=== PATIENT | female | born 1950 | race Two or more races ===

== ENCOUNTER 2022-09-01 10:39 | Outpatient (REF) | payer MEDICARE, SELFPAY ==
--- NOTE | ~2022-09-01 | XR_ITS ---
Examination: AP bilateral knee standing. Bilateral elbow and bilateral knee. Clinical indications: Rheumatoid arthritis. Pain. COMPARISON: None. TECHNIQUE: AP bilateral knee 1 view standing. 2 views each knee. 3 views each elbow. FINDINGS: AP bilateral knee standing: There is moderate loss of medial compartment joint space bilateral knees with mild periarticular spurring right knee. No loose bodies, bony erosive changes seen. Right knee: There is mild loss of patellofemoral compartment joint space without joint effusion or loose bodies. There is moderate anterior superior patellar enthesophyte. Left knee: There is mild loss of patellofemoral compartment joint space with small to moderate anterior suprapatella enthesophyte. No loose bodies or bony erosive changes. The soft tissues are normal. Bilateral elbow: The joint space is preserved. No bony erosive changes (sites. No joint effusion seen. XR/XR elbow RT min 3V IMPRESSION: 1. 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 2. Bilateral anterior superior patellar enthesophytes. No joint effusion seen. 3. Unremarkable bilateral elbow exam. No joint effusion seen.
--- NOTE | ~2022-09-01 | XR_ITS ---
Examination: AP bilateral knee standing. Bilateral elbow and bilateral knee. Clinical indications: Rheumatoid arthritis. Pain. COMPARISON: None. TECHNIQUE: AP bilateral knee 1 view standing. 2 views each knee. 3 views each elbow. FINDINGS: AP bilateral knee standing: There is moderate loss of medial compartment joint space bilateral knees with mild periarticular spurring right knee. No loose bodies, bony erosive changes seen. Right knee: There is mild loss of patellofemoral compartment joint space without joint effusion or loose bodies. There is moderate anterior superior patellar enthesophyte. Left knee: There is mild loss of patellofemoral compartment joint space with small to moderate anterior suprapatella enthesophyte. No loose bodies or bony erosive changes. The soft tissues are normal. Bilateral elbow: The joint space is preserved. No bony erosive changes (sites. No joint effusion seen. XR/XR knee RT 3V IMPRESSION: 1. 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 2. Bilateral anterior superior patellar enthesophytes. No joint effusion seen. 3. Unremarkable bilateral elbow exam. No joint effusion seen.
--- NOTE | ~2022-09-01 | XR_ITS ---
Examination: AP bilateral knee standing. Bilateral elbow and bilateral knee. Clinical indications: Rheumatoid arthritis. Pain. COMPARISON: None. TECHNIQUE: AP bilateral knee 1 view standing. 2 views each knee. 3 views each elbow. FINDINGS: AP bilateral knee standing: There is moderate loss of medial compartment joint space bilateral knees with mild periarticular spurring right knee. No loose bodies, bony erosive changes seen. Right knee: There is mild loss of patellofemoral compartment joint space without joint effusion or loose bodies. There is moderate anterior superior patellar enthesophyte. Left knee: There is mild loss of patellofemoral compartment joint space with small to moderate anterior suprapatella enthesophyte. No loose bodies or bony erosive changes. The soft tissues are normal. Bilateral elbow: The joint space is preserved. No bony erosive changes (sites. No joint effusion seen. XR/XR elbow LT min 3V IMPRESSION: 1. 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 2. Bilateral anterior superior patellar enthesophytes. No joint effusion seen. 3. Unremarkable bilateral elbow exam. No joint effusion seen.
--- NOTE | ~2022-09-01 | XR_ITS ---
Examination: AP bilateral knee standing. Bilateral elbow and bilateral knee. Clinical indications: Rheumatoid arthritis. Pain. COMPARISON: None. TECHNIQUE: AP bilateral knee 1 view standing. 2 views each knee. 3 views each elbow. FINDINGS: AP bilateral knee standing: There is moderate loss of medial compartment joint space bilateral knees with mild periarticular spurring right knee. No loose bodies, bony erosive changes seen. Right knee: There is mild loss of patellofemoral compartment joint space without joint effusion or loose bodies. There is moderate anterior superior patellar enthesophyte. Left knee: There is mild loss of patellofemoral compartment joint space with small to moderate anterior suprapatella enthesophyte. No loose bodies or bony erosive changes. The soft tissues are normal. Bilateral elbow: The joint space is preserved. No bony erosive changes (sites. No joint effusion seen. XR/XR knee LT 3V IMPRESSION: 1. 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 2. Bilateral anterior superior patellar enthesophytes. No joint effusion seen. 3. Unremarkable bilateral elbow exam. No joint effusion seen.
--- NOTE | ~2022-09-01 | XR_ITS ---
Examination: AP bilateral knee standing. Bilateral elbow and bilateral knee. Clinical indications: Rheumatoid arthritis. Pain. COMPARISON: None. TECHNIQUE: AP bilateral knee 1 view standing. 2 views each knee. 3 views each elbow. FINDINGS: AP bilateral knee standing: There is moderate loss of medial compartment joint space bilateral knees with mild periarticular spurring right knee. No loose bodies, bony erosive changes seen. Right knee: There is mild loss of patellofemoral compartment joint space without joint effusion or loose bodies. There is moderate anterior superior patellar enthesophyte. Left knee: There is mild loss of patellofemoral compartment joint space with small to moderate anterior suprapatella enthesophyte. No loose bodies or bony erosive changes. The soft tissues are normal. Bilateral elbow: The joint space is preserved. No bony erosive changes (sites. No joint effusion seen. XR/XR knee standing BI IMPRESSION: 1. 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 2. Bilateral anterior superior patellar enthesophytes. No joint effusion seen. 3. Unremarkable bilateral elbow exam. No joint effusion seen.
[2022-09-01 12:29] LABS: MANUAL DIFF FLAG NO
[2022-09-01 13:29] LABS: Basophils Percent Auto 0.6 % (0-2); Eosinophils Absolute Auto 0.1 X10*3/uL (0.0-0.4); Eosinophils Percent Auto 0.9 % (0-4); Hematocrit 41.6 % (37.0-47.0); Hemoglobin 13.9 g/dl (12.0-16.0); Imm Gran Abs Auto 0.02 X10*3/uL (0.00-0.03); Imm Gran Pct Auto 0.3 % (0.0-0.4); Lymphocytes Absolute Auto 3.1 X10*3/uL (1.2-4.9); Lymphocytes Percent Auto 44.5 % (20-40); Mean Corpuscular HGB Conc 33.4 g/dl (31.0-35.0); Mean Corpuscular Hemoglobin 28.8 pg (27.0-33.0); Mean Corpuscular Volume 86.1 fL (80.0-98.0); Mean Platelet Volume 9.4 fL (9.4-12.3); Monocytes Absolute Auto 0.5 X10*3/uL (0.1-1.2); Monocytes Percent Auto 7.2 % (2-11); Neutrophils Absolute Auto 3.2 x10*3/uL (2.0-8.3); Neutrophils Percent Auto 46.5 % (45-73); Platelet Count 348 X10*3/uL (160-400); Red Blood Count 4.83 X10*6/uL (4.20-5.50); Red Cell Distribution Width 13.6 % (11.0-16.0); White Blood Count 6.9 X10*3/uL (4.8-10.8)
[2022-09-01 14:08] LABS: Erythrocyte Sedimentation Rate 12 MM/HR (0-20)
[2022-09-01 14:20] LABS: Alanine Aminotransferase 20 U/L (0-31); Albumin Level 4.4 g/dL (3.5-5.0); Alkaline Phosphatase 110 U/L (39-117); Aspartate Amino Transferase 24 U/L (5-31); Bilirubin Total 0.5 mg/dL (0.0-1.0); Blood Urea Nitrogen 9 mg/dL (9-16); C Reactive Protein 0.12 mg/dL (< or = 0.50); Calcium 9.5 mg/dL (8.4-10.2); Carbon Dioxide 25 mmol/L (22-29); Chloride 103 mmol/L (96-108); Estimated Glomerular Filt Rate 55; Glucose Random 90 mg/dL (60-115); Potassium 4.7 mmol/L (3.3-5.1); Sodium 136 mmol/L (135-145); Total Protein 7.3 g/dL (6.5-8.0); Uric Acid 4.6 mg/dL (2.4-5.7)
[2022-09-01 14:34] LABS: Anion Gap 17 (12-20); Rheumatoid Factor < 13.0 IU/mL (<15.0)
[2022-09-02 09:27] LABS: HBS Num1 0.37 mIU/mL (0-7.99); HBc Num1 0.12 S/CO (0.00-0.79); HBsAGNum1 0.27 S/CO (0.00-0.99); Hepatitis A Antibody IgM 0.11 Index (0-0.79); Hepatitis B Core Antibody Nonreactive (Nonreactive); Hepatitis B Surface Antigen Negative (Negative); ~HepC Num1 0.11 S/CO (0.00-0.79); ~Hepatitis A Antibody IgM Nonreactive (Nonreactive); ~Hepatitis B Surface Antibody NONREACTIVE (Nonreactive); ~Hepatitis C Antibody Nonreactive (Nonreactive)
[2022-09-03 23:48] LABS: TS Negative Control Passed; TS Panel A 0; TS Panel B 0; TS Positive Control Passed; TSpotTB Negative (Negative)
[2022-09-05 11:58] LABS: IgA 211 mg/dL (70-320); IgG 1289 mg/dL (600-1540); IgM 90 mg/dL (50-300)
[2022-09-07 15:48] LABS: Cyclic Citrullinated Peptide <16 UNITS
[2022-09-08 18:14] LABS: Prot Elec - Albumin 4.3 g/dL (3.8-4.8); Prot Elec - Alpha1 0.4 g/dL (0.2-0.3); Prot Elec - Alpha2 0.8 g/dL (0.5-0.9); Prot Elec - Beta 1 0.5 g/dL (0.4-0.6); Prot Elec - Beta 2 0.4 g/dL (0.2-0.5); Prot Elec - Gamma 1.2 g/dL (0.8-1.7); Prot Elec - Total Protein 7.5 g/dL (6.1-8.1)
[2022-09-09 07:24] LABS: PES-Abn Protein Band 2 TNPT
== END 2022-09-01 10:40 | disposition home or self-care (01) ==
LOC: HO.LAB 10:39
PROVIDERS: PCP Physician Assistant; Visit Provider Student in an Organized Health Care Education/Training Program
DX: Z11.59 Encounter for screening for other viral diseases (principal); Z11.7 Encounter for testing for latent tuberculosis infection; M06.9 Rheumatoid arthritis, unspecified; M25.561 Pain in right knee; Z72.89 Other problems related to lifestyle
CPT/HCPCS: 36415; 73080; 73562; 73564; 73565; 80053; 82784; 84165; 84550; 85025; 85652; 86140; 86200; 86334; 86431; 86481; 86704; 86706; 86709; 86803; 87340; 99202